=== PATIENT | male | born 1985 | race Caucasian/White ===

== ENCOUNTER 2016-07-05 13:23 | Emergency (ER) | payer OTHER ==
--- NOTE | 2016-07-05 13:44 | Emergency Department Record ---
History of Present Illness - General Chief Complaint: Fever Stated Complaint: FEVER,COUGH,CONGESTION Time Seen by Provider: 07/05/16 13:38 Source: Patient Mode of Arrival: Ambulatory Limitations: No limitations - History of Present Illness Initial Comments: 31 yo male presents with a cough for about 2 weeks. He has had some nasal drainage, mild sore throat and ear congestion. He has had fevers that come and go. 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 He was seen at a [facility] and was diagnosed with double ear infection and started on Augmentin. He has not improved since. He did get the pneumococcal vaccine but not the influenza vaccine. PCP [facility]. Complaint: Fever, Other (cough) Onset/Timin -: Days(s) Maximum Temperature: 102 F Temperature Source: Oral Associated Symptoms: Cough, Sore throat Treatments Prior to Arrival: None - Related Data Previous Rx's Medication Instructions Recorded Amoxicillin/Potassium Clav 1 tab PO BID #20 tab 02/11/16 [Augmentin 875-125 Tablet] Levofloxacin [Levaquin] 750 mg PO DAILY #7 tab 07/05/16 Allergies Allergy/AdvReac Type Severity Reaction Status Date / Time No Known Drug Allergies Allergy Verified 09/21/13 19:53 Travel Screening - Travel/Exposure Within Last 30 Days Have you traveled within the last 30 days?: No Review of Systems Constitutional: Reports: Fever. Denies: Chills, Malaise, Weakness Eyes: Denies: Eye discharge, Eye pain, Photophobia, Vision change ENT: Reports: Congestion, Ear pain, Throat pain Respiratory: Reports: Cough. Denies: Dyspnea, Hemoptysis, Stridor, Wheezes Cardiovascular: Denies: Chest pain, Palpitations, Syncope, Other Endocrine: Denies: Fatigue, Polydipsia, Polyuria Gastrointestinal: Denies: Abdominal pain, Diarrhea, Nausea, Vomiting Genitourinary: Denies: Dysuria, Frequency, Hematuria, Urgency Musculoskeletal: Denies: Arthralgia, Back pain, Joint swelling, Myalgia Skin: Denies: Bruising, Change in color, Rash Neurological: Denies: Confusion, Headache Psychiatric: Denies: Anxiety Hematological/Lymphatic: Denies: Anemia, Blood Clots, Easy bleeding, Easy bruising, Swollen glands Past Medical History - SOCIAL HISTORY Smoking Status: Never smoker Alcohol Use: Occassional Drug Use: None - RESPIRATORY Hx Respiratory Disorders: No - CARDIOVASCULAR Hx Cardio Disorders: No - NEURO Hx Neuro Disorders: No - GI Hx GI Disorders: No - Hx Genitourinary Disorders: No - ENDOCRINE Hx Endocrine Disorders: No - MUSCULOSKELETAL Hx Musculoskeletal Disorders: No - PSYCH Hx Psych Problems: No - HEMATOLOGY/ONCOLOGY Hx Hematology/Oncology Disorders: Yes Comment:: spherocytosis Family Medical History Any Significant Family History?: No Physical Exam - General General Appearance: Alert, Oriented x3, Cooperative, No acute distress Limitations: No limitations - Head Head exam: Normal inspection - Eye Eye exam: Normal appearance, PERRL. negative: Conjunctival injection - ENT ENT exam: Normal exam, Mucous membranes moist, Normal external ear exam, Normal orophraynx Ear exam: Normal external inspection. negative: External canal tenderness Nasal Exam: Discharge (clear) Mouth exam: Normal external inspection, Tongue normal Teeth exam: Normal inspection. negative: Dental caries Throat exam: Tonsillar erythema. negative: Tonsillomegaly, Tonsillar exudate, R peritonsillar mass, L peritonsillar mass - Neck Neck exam: Normal inspection, Full ROM. negative: Lymphadenopathy, Tenderness, Thyromegaly - Respiratory Respiratory exam: Normal lung sounds bilaterally. negative: Respiratory distress, Rhonchi, Stridor, Wheezes - Cardiovascular Cardiovascular Exam: Regular rate, Normal rhythm, Normal heart sounds Peripheral Pulses: 2+: Radial (R), Radial (L) - GI/Abdominal GI/Abdominal exam: Soft. negative: Tenderness - Rectal Rectal exam: Deferred - exam: Deferred - Back Back exam: Reports: Normal inspection, Full ROM. Denies: CVA tenderness (R), CVA tenderness (L), Muscle spasm, Paraspinal tenderness, Rash noted, Tenderness , Vertebral tenderness - Neurological Neurological exam: Alert, Normal gait, Oriented X3 - Psychiatric Psychiatric exam: Normal affect, Normal mood. negative: Agitated, Anxious - Skin Skin exam: Dry, Intact, Normal color, Warm Course Vital Signs 07/05/16 13:27 Temperature 97.9 F Pulse Rate 95 H Respiratory 20 Rate Blood Pressure 125/68 Pulse Ox 95 - Reevaluation(s) Reevaluation #1: The patient was seen and examined He appears well, comfortable and non labored with normal work of breathing. Given his symptoms and influenza and strep screen were sent and a CXR was ordered. 07/05/16 13:49 Reevaluation #2: The strep and influenza screens are negative 07/05/16 14:16 Reevaluation #3: We reviewed the 8mm nodule together at the PAX. I discussed this must be followed up with the PCP No infiltrate to suggest pnuemonia He clinically appears very well, no signs of SBI We discussed changing to Levaquin if any more fevers and a recheck 07/05/16 14:42 Disposition Clinical Impression: Bronchitis, Lung nodule Disposition: Home, Self-Care Condition: (1) Good Instructions: Acute Bronchitis (ED) Additional Instructions: Immediate return or seek medical care if worse, fevers, chills or new concerns Call your doctor Thursday for close follow up Levaquin daily You will need to follow up the nodule seen on the XR with your doctor Prescriptions: Levofloxacin [Levaquin] 750 mg PO DAILY #7 tab Forms: Patient Portal Access Time of Disposition: 14:45
[2016-07-05 14:11] LABS: INFLUENZA A NEGATIVE (NEGATIVE); INFLUENZA B NEGATIVE (NEGATIVE)
== END 2016-07-05 14:51 | disposition home or self-care (01) ==
LOC: ER 13:23
DX: J20.9 Acute bronchitis, unspecified (principal); R91.1 Solitary pulmonary nodule
CPT/HCPCS: 71020; 87400; 87880; 99283; 99284